=== PATIENT | female | born 1975 | race Caucasian/White ===

== ENCOUNTER 2016-08-29 10:23 | Inpatient (IN) | payer BC ==
[~2016-08-29] VITALS: Ht 152.4 cm; Wt 57.2 kg
[~2016-08-29 10:23] MED LIST: PRENCAP10 PO
[2016-08-30] MEDS: LACTATED RINGER'S 1000 ML INJ 1,000 ML IV SCH ×2 (13:04→21:40)
--- NOTE | 2016-08-30 14:32 | MH ---
cc: CLAIR BOND. DATE OF ADMISSION: 08/30/2016 DATE OF : 1975 ADMISSION DIAGNOSIS 1. Term . 2. Cephalopelvic disproportion. HISTORY OF PRESENT ILLNESS The patient is a 40-year-old white female, para 0-0-2-0, LMP of 11/29/2015, EDC of 09/04/2016. Her preop course has been benign. She had normal first TM screen, normal panorama at term. She has small pelvis is now admitted for delivery. PAST MEDICAL HISTORY PAST SURGERIES Breast augmentation 1995. MEDICATIONS Vitamins. ALLERGIES Environmental. TRANSFUSIONS None. OBSTETRICAL HISTORY Two spontaneous abortions first trimester and second in 2014 required D&C. SOCIAL HISTORY She is . She works in [employer]. Alcohol, tobacco and drugs are none. PHYSICAL EXAMINATION GENERAL: A petite female. Height is 5 feet. HEENT: Exam is normal. CHEST: Chest is clear. HEART: Regular rate. BREASTS: The breasts are symmetrical. ABDOMEN: Benign. PELVIC: Normal external genitalia and BUS. Vagina is normal. Cervix is normal. EFW about 3300 grams, vertex is ballotable. ASSESSMENT As above. PLAN She is now admitted for primary . While in the office I explained the procedures, the risks, benefits and complications. The patient would like to proceed. The patient does not desire trial of labor. MD GIA Waldron/RODERICK /1:26 PM /2:14 PM ERICK
[2016-08-30 17:09] LABS: AUTOMATED NEUTROPHIL # 6.3 TH/MM3 (1.8-7.7); BACTERIA, URINE MOD /hpf; BASOPHIL % 0.1 % (0.0-2.0); BLOOD, URINE NEG (NEG); COMMENT (UR) CULTURE INDICATED; CULTURE IF INDICATED CULTURE INDICATED; EOSINOPHIL % 0.2 % (0.0-4.0); GLUCOSE,URINE NEG (NEG); HEMATOCRIT 36.1 % (35.0-46.0); HEMO FLAGS DIFF FINAL; KETONE, URINE 150 mg/dL (NEG); LYMPH % 15.5 % (9.0-44.0); LYMPHOCYTE # 1.3 TH/MM3 (1.0-4.8); MEAN CELL VOLUME 95.1 FL (80.0-100.0); MEAN CORPUSCULAR HEMOGLOBIN 32.4 PG (27.0-34.0); MONO % 6.4 % (0.0-8.0); MUCUS URINE FEW /lpf (OCC); NEUT % 77.8 % (16.0-70.0); NITRITE,URINE NEG (NEG); PH, URINE 5.5 (5.0-8.5); PLATELET COUNT 184 TH/MM3 (150-450); RED BLOOD COUNT 3.79 MIL/MM3 (4.00-5.30); RED CELL DISTRIBUTION WIDTH 14.1 % (11.6-17.2); SQUAMOUS EPITHELIAL CELL URINE 3 /hpf (0-5); TRANSITIONAL EPI CELLS, URINE <1 /hpf; URINE COLOR DARK-YELLOW (YELLW/STRAW); WHITE BLOOD COUNT 8.2 TH/MM3 (4.0-11.0)
[2016-08-30] MEDS ORDERED: CITRIC ACID-SODIUM CITRATE LIQ 30 ML UDC ONE (17:23)
[2016-08-30] MEDS ORDERED: OXYTOCIN 10 UNIT/ML AMP ONE (17:23)
[2016-08-30] MEDS ORDERED: ACETAMINOPHEN 1000 MG/100 ML VIAL IV ONE (17:38)
[2016-08-30] MEDS ORDERED: ONDANSETRON HCL 4 MG/2 ML VIAL IVP PRN (17:45)
[2016-08-30] MEDS ORDERED: MEASLES, MUMPS, RUBELLA VACCINE 0.5 ML VIAL SQ ONE (17:45)
[2016-08-30] MEDS ORDERED: OXYTOCIN 30 UNITS-500ML PREMIX 500 ML IV ONE (17:45)
[2016-08-30] MEDS ORDERED: ZOLPIDEM TARTRATE 5 MG TAB PO PRN (17:45)
[2016-08-30] MEDS ORDERED: IBUPROFEN 600 MG TAB PO PRN (17:45)
[2016-08-30] MEDS ORDERED: KETOROLAC TROMETHAMINE 60 MG/2 ML (IM) VIAL IM PRN ×2 (17:45→18:00)
[2016-08-30] MEDS ORDERED: SODIUM CHLORIDE 0.9% FLUSH 5 ML FLUSH IV PRN (17:45)
[2016-08-30] MEDS ORDERED: SIMETHICONE 80 MG CHEWABLE TAB PO PRN (17:45)
[2016-08-30] MEDS: LACTATED RINGER'S 1000 ML IV SCH ×2 (18:00→19:28)
[2016-08-30] MEDS ORDERED: LACTATED RINGER'S 1000 ML IV ONE (18:00)
[2016-08-30] MEDS ORDERED: OXYTOCIN 30 UNITS-500ML PREMIX 500 ML IV PRN (18:15)
[2016-08-30] MEDS ORDERED: MORPHINE SULFATE PF 5 MG/10 ML VIAL ONE (18:29)
[2016-08-30] MEDS: ceFAZolin 2 GM PREMIX 50 ML IV SCH ×2 (18:52→19:27)
[2016-08-30] MEDS: CITRIC ACID-SODIUM CITRATE LIQ 30 ML UDC PO SCH ×2 (18:52→19:26)
[2016-08-30 19:15] VITALS: BP 104/70; PULSE 80; RESP 18
[2016-08-30 19:30] VITALS: BP 105/72; PULSE 70; RESP 18
[2016-08-30 20:30] VITALS: BP 111/67; PULSE 58; RESP 18; TEMP 96.9; O2SAT 99
[2016-08-30] MEDS: SODIUM CHLORIDE 0.9% FLUSH 5 ML FLUSH IV SCH (21:00)
[2016-08-30] MEDS ORDERED: EPIDURAL-NALOXONE HCL 0.4 MG/ML AMP IV PRN (21:30)
[2016-08-30] MEDS ORDERED: EPIDURAL-NO SYSTEMIC NARCOTICS XX PRN (21:30)
[2016-08-30] MEDS ORDERED: EPIDURAL-DIPHENHYDRAMINE HCL 50 MG CAP PO PRN (21:30)
[2016-08-30] MEDS ORDERED: EPIDURAL-DIPHENHYDRAMINE HCL 50 MG/ML VIAL IV PUSH PRN (21:30)
[2016-08-30] MEDS ORDERED: EPIDURAL-DO NOT ADMINISTER ANTICOAGULANTS XX PRN (21:30)
[2016-08-31] VITALS (9 sets, daily range): BP systolic 95–122; BP diastolic 61–63; PULSE 64–93; RESP 18; TEMP 98; O2SAT 99–100
[2016-08-31] MEDS: ACETAMINOPHEN 1000 MG/100 ML VIAL IV SCH ×2 (01:59→06:33)
[2016-08-31] MEDS ORDERED: ACETAMINOPHEN 1000 MG/100 ML VIAL IV SCH ×2 (02:00→14:45)
[2016-08-31] MEDS ORDERED: EPINEPHrine HCL (1:1000) 1 MG/ML VIAL ONE (02:26)
[2016-08-31] MEDS ORDERED: RESP: RACEPINEPHRINE 2.25% 0.5 ML NEB NEB STA ×2 (02:29→02:38)
[2016-08-31] MEDS ORDERED: methylPREDNISolone SOD SUCC 125 MG/2 ML VIAL IV ONE (02:30)
--- NOTE | 2016-08-31 02:39 | HHI.PR ---
Addendum to Inpatient Note Addendum Reason: Additional Documentation Additional Information S: Medical Team paged at approximately 0215 for Halicat due to suspected anaphylactic reaction. Patient currently on mother-baby floor s/p uncomplicated . Patient given Ancef at 0114, Motrin at 0128, and Acetaminophen at 0159 prior to reaction. Per nursing report patient started to experience SOB with the sensation that "something was stuck in her throat" at approximately 0200. She then began hyperventilating, and Halicat was called. Of note patient had earlier administrations of Ancef and Acetaminophen without reaction. O: VITALS: 98 bpm, 147/90, RR 30, saturation 100% currently receiving racemic epinephrine via mask GENERAL: 40 y/o F s/p lying in bed, upright in respiratory distress, but able to communicate in short complete sentences. Patient is very anxious, crying, and hyperventilating. SKIN: Warm and dry. No visible rash or hives. HEENT: Normocephalic. Atraumatic. EOMI. MMM. Uvula midline with minor possible glossal edema. Unable to visualize tonsils. NECK: Supple, trachea midline. No JVD or lymphadenopathy. CARDIOVASCULAR: RRR with no MGR. RESPIRATORY: CTAB with no CRW. Tachypnea to 30 with accessory muscle use and tripoding. GASTROINTESTINAL: Abdomen soft, non-tender, nondistended. incision bandaged without signs of infection or hemorrhage. MUSCULOSKELETAL: No cyanosis or edema. NEURO/PSYCH: Afocal. Awake, alert, and oriented x3. A: Mrs. Johns is a 40 y/o F s/p presenting with possible anaphylactic reaction to Ancef vs Motrin. P: 1.Anaphylactic Reaction -Patient given Benadryl 50mg x1, Solumedrol 100mg x1, and racemic epinephrine breathing treatments x2 -Patient continues to be anxious and tachypneic. Patient currently with stable vitals and without complaints. -Ancef, Motrin, and Acetaminophen added to patient's allergy list. Further investigation likely required. 2. S/P -Continue routine post- care -Dr. Ellington, OBCHRISTINE, at bedside SDW: Dr. Ellington and Dr. Pugh Update at 0630: Notified by nursing staff that Acetaminophen was not administered prior to the patient's reaction. Therefore Acetaminophen will be removed from the patient's allergy list. Macario Turk MD R1 Aug 31, 2016 02:39
[2016-08-31 06:10] LABS: AUTOMATED NEUTROPHIL # 7.1 TH/MM3 (1.8-7.7); BASOPHIL % 0.2 % (0.0-2.0); EOSINOPHIL % 0.1 % (0.0-4.0); HEMATOCRIT 32.6 % (35.0-46.0); HEMO FLAGS DIFF FINAL; LYMPH % 4.8 % (9.0-44.0); LYMPHOCYTE # 0.4 TH/MM3 (1.0-4.8); MEAN CELL VOLUME 94.5 FL (80.0-100.0); MEAN CORPUSCULAR HEMOGLOBIN 31.9 PG (27.0-34.0); MEAN CORPUSCULAR HGB CONC 33.7 % (32.0-36.0); MONO % 3.2 % (0.0-8.0); NEUT % 91.7 % (16.0-70.0); PLATELET COUNT 171 TH/MM3 (150-450); RED BLOOD COUNT 3.45 MIL/MM3 (4.00-5.30); RED CELL DISTRIBUTION WIDTH 14.1 % (11.6-17.2); WHITE BLOOD COUNT 7.8 TH/MM3 (4.0-11.0)
[2016-08-31] MEDS: LACTATED RINGER'S 1000 ML IV SCH ×2 (06:33→20:40)
[2016-08-31 06:37] LABS: BICARBONATE 24.2 MEQ/L (21.0-32.0); POTASSIUM 3.9 MEQ/L (3.5-5.1)
--- NOTE | 2016-08-31 14:12 | MP ---
cc: VARUNCLAIR DATE OF SURGERY: 08/30/2016. PREOPERATIVE DIAGNOSIS: 1. Term . 2. Advanced maternal age of 40. 3. Cephalopelvic disproportion. POSTOPERATIVE DIAGNOSIS: 1. Term . 2. Advanced maternal age of 40. 3. Cephalopelvic disproportion. 4. Delivered. OPERATIVE PROCEDURE PERFORMED: Primary low transverse section. SURGEON: Clair Ellington MD. ANESTHESIA: Spinal. INSURANCE EXAMINER: ELOY Phan. ESTIMATED BLOOD LOSS: 600 cc. FLUIDS: 2.3 liters of crystalloid. OBJECTIVE FINDINGS / DESCRIPTION OF THE PROCEDURE IN DETAIL: Following the induction of adequate spinal anesthesia, the patient was prepped and draped supine on the operating table in the dorsal lithotomy position in the usual sterile fashion with the bladder being drained via Erickson catheterization. The abdomen was opened through a Pfannenstiel incision using the knife to cut down from the skin to the fascia. Fascia was opened transversely and stripped the muscles. Rectus muscle was in the midline and the peritoneum opened sharply without incident. The bladder flap was taken down sharply and retracted with a Ramin blade. The lower uterine segment was incised transversely with a knife and extended with blunt dissection with emergence of clear fluid. The baby was in the LOT position. There was a cord in front of the face. The vacuum extractor was applied to the occiput and used to gently lift the head through the abdominal wound. The mouth was suctioned. The cord was clamped and cut and the baby passed to the awaiting team, a viable vigorous female with Apgars 8 and 9 and weight 7 pounds even. Cord blood was sent for typing. Placenta removed and the uterine cavity was cleaned with laps. The uterus was exteriorized and closed with two layers of running suture, first with a running locking stitch of 0-Vicryl and the second with a running imbricating stitch of0- Vicryl. On posterior inspection uterus, tubes and ovaries were normal. The uterus was now replaced in the abdominal cavity. Inspection was performed and no bleeding was evident. The bladder flap was closed a running stitch of 3-0 Vicryl. All lap structures removed. Counts were correct. The anterior peritoneum was closed with a running stitch of 2-0 Vicryl. The fascia was closed with running locking stitch of 0 Vicryl corner to midline and tied, subcu with running 3-0 Vicryl and skin with running subcuticular 3-0 Monocryl. Dermabond applied. All counts were correct and the patient was awake and taken to the recovery room in good condition. MD GIA Waldron/EL /6:39 PM /1:54 PM MTDD
[2016-08-31] MEDS: oxyCODONE/ACETAMINOPHEN 5 MG/325 MG TAB PO PRN ×2 (19:16→23:58)
[2016-08-31] MEDS: SODIUM CHLORIDE 0.9% FLUSH 5 ML FLUSH IV SCH (21:00)
[2016-08-31] MEDS: DOCUSATE SODIUM 50 MG/SENNA 8.6 MG TAB PO PRN (23:58)
[2016-09-01] MEDS: LACTATED RINGER'S 1000 ML IV SCH ×2 (03:20→23:02)
[2016-09-01] MEDS: oxyCODONE/ACETAMINOPHEN 5 MG/325 MG TAB PO PRN ×5 (04:04→23:40)
[2016-09-01] MEDS ORDERED: DIPHTH/TETANUS/ACEL PERTUSSIS (BOOSTER) 0.5 ML VIAL/PFS IM ONE (09:00)
[2016-09-01] MEDS ORDERED: OXYC1TAB63 PO (10:34)
--- NOTE | 2016-09-01 10:34 | HHI.DCPOC ---
Discharge Care Plan Report Symptoms to Your Doctor -Temperate above 100.5 degrees -Redness, of incision or excessive or foul smelling drainage -Unusual pain or calf pain -Increased vaginal bleeding -Painful or difficulty urinating -Feelings of extreme sadness or anxiety after 2 weeks Goals to Promote Your Health * To prevent worsening of your condition and complications * To maintain your health at the optimal level Directions to Meet Your Goals Take your medications as prescribed Follow your dietary instruction Follow activity as directed Ensure plenty of rest for recovery Drink fluids for hydration Keep your appointments as scheduled Take your immunizations and boosters as scheduled If your symptoms worsen call your PCP, if no PCP go to Urgent Care Center or Emergency Room Smoking is Dangerous to Your Health. Avoid second hand smoke Call the 24-hour crisis hotline for domestic abuse at Wil Ellington MD Sep 01, 2016 10:34
[2016-09-01] MEDS ORDERED: WITCH HAZEL 50%/GLYCERIN 12.5% 40 PAD JAR TOPICAL PRN (17:00)
[2016-09-01] MEDS ORDERED: BENZOCAINE 20% TOPICAL SPRAY 60 ML CAN TOPICAL PRN (17:00)
[2016-09-01] MEDS: DOCUSATE SODIUM 50 MG/SENNA 8.6 MG TAB PO PRN (17:22)
[2016-09-01] MEDS: SODIUM CHLORIDE 0.9% FLUSH 5 ML FLUSH IV SCH (21:00)
[2016-09-02] MEDS: LACTATED RINGER'S 1000 ML IV SCH (05:10)
[2016-09-02] MEDS: oxyCODONE/ACETAMINOPHEN 5 MG/325 MG TAB PO PRN ×2 (05:16→10:08)
[2016-09-02] MEDS: DOCUSATE SODIUM 50 MG/SENNA 8.6 MG TAB PO PRN (05:16)
--- NOTE | 2016-09-11 21:43 | MD ---
cc: CLAIR BOND ADMISSION DATE: 08/30/2016 DISCHARGE DATE: 09/02/2016 ADMISSION DIAGNOSIS 1. Term 2. Advanced maternal age 3. Cephalopelvic disproportion. DISCHARGE DIAGNOSIS 1. Term 2. Advanced maternal age 3. Cephalopelvic disproportion. 4. Delivered. PROCEDURE Primary low transverse section on 08/30/2016. HISTORY OF PRESENT ILLNESS The patient is a 40 year-old female, para 0-0-2-0 with an EDC of 09/04/2016 by dates and early ultrasound. course was benign. Genetic testing was normal. Blood type was positive. Cultures negative. The patient was counseled regarding delivery, was admitted for primary on 08/30/2016, delivery of a viable female, Apgars 8 and 9, weight 7 pounds even. The baby's name was Yaw. She was breast feeding. she did well, discharged home in excellent condition on 09/02/16. Of note, on the morning of 08/31/16 she developed difficulty swallowing after a dose of Motrin p.o. and IV Ancef. Both were discontinued. She was given IV Benadryl, IV Solu-Medrol, racemic epinephrine breathing treatment and rapidly improved. Her pre and postop labs were normal. She was advised NPV, light activity, no driving, return to see me in one week. She is to call for abnormal symptoms. MD GIA Waldron/MOLINA /10:33 AM /9:36 PM
== END 2016-09-02 11:43 | disposition home or self-care (01) | DRG 766 ==
LOC: H2EB 08-30 15:27 → H1EA 08-30 20:17
PROVIDERS: ADMIT Obstetrics & Gynecology; ATTEND Obstetrics & Gynecology
PROC: 10D00Z1 Extraction of Products of Conception, Low, Open Approach (ICD-10-PCS; principal; 2016-08-30)
DX: O33.8 Maternal care for disproportion of other origin (principal); O09.513 Supervision of elderly primigravida, third trimester; Z3A.38 38 weeks gestation of pregnancy; Z37.0 Single live birth; T36.1X5A Adverse effect of cephalosporins and other beta-lactam antibiotics, initial encounter; R13.10 Dysphagia, unspecified; T39.315A Adverse effect of propionic acid derivatives, initial encounter; Y92.238 Other place in hospital as the place of occurrence of the external cause
CPT/HCPCS: 59025; 80048; 81001; 85025; 86850; 86900; 86901; 87086; 94640; 94664; J0131; J0171; J0690; J1200; J2274; J2590; J2930; J7120